=== PATIENT | female | born 1980 | race Caucasian/White ===

== ENCOUNTER 2021-03-03 22:31 | Emergency (ER) | payer SELFPAY ==
[2021-03-03] MEDS ORDERED: Morphine 4 MG/ML VIAL ONE (23:25)
[2021-03-03] MEDS ORDERED: Ketorolac Tromethamine 30 MG/ML VIAL ONE (23:25)
[2021-03-04] MEDS ORDERED: HYDROcodone/Acetaminophen 10/325 mg Tablet ONE (00:01)
== END 2021-03-04 00:15 | disposition home or self-care (01) ==
LOC: ERS 22:31
DX: G89.18 Other acute postprocedural pain (principal); K08.89 Other specified disorders of teeth and supporting structures
CPT/HCPCS: 96372; 99283; J1885; J2270